=== PATIENT | male | born 1965 | race Caucasian/White ===

== ENCOUNTER 2017-12-26 07:54 | Emergency (ER) | payer MEDICARE, MEDICAID ==
[~2017-12-26] VITALS: Ht 167.6 cm; Wt 96.4 kg
[~2017-12-26 07:54] MED LIST: ALBU18HF2 IH; ASPI-1265 PO; BENA20TA2 PO; CHOL100046 PO; FENO54TA PO; INSU100I12 SQ; MAX25Tt PO; MOME13HF INH; MONT10TA21 PO; NOR5T PO; NOVLG SQ; OMEG1CAP PO; ROSU10TA PO; ZOLP6.2526 PO
[2017-12-26 08:43] LABS: CLARITY,URINE CLEAR (Clear); COLOR,URINE STRAW (Yellow); GLUCOSE, URINE >=1000 mg/dl (Neg); KETONES,URINE NEGATIVE (Neg); LEUKOCYTE ESTERASE ,URINE NEGATIVE (Neg); NITRITES, URINE NEGATIVE (Neg); OCCULT BLOOD,URINE TRACE-LYSED (Neg); PROTEIN,URINE 30 mg/dl (Neg); UROBILINOGEN,URINE 0.2 E.U/dL (0.2-1.0)
[2017-12-26 08:44] LABS: UA COLLECTION TYPE CLN CATCH MIDSTREAM
[2017-12-26 08:48] LABS: BACTERIA,URINE NONE SEEN /HPF (Neg); RBC,URINE NONE SEEN /HPF (0-2); SQUAMOUS EPITHELIAL CELL,UR FEW /LPF (FEW); WBC,URINE NONE SEEN /HPF (0-4)
[2017-12-26 08:52] VITALS: BP 138/80
[2017-12-26 09:38] LABS: BASOPHILS # (AUTO) 0.1 X10'3 (0-0.2); BASOPHILS % (AUTO) 0.8 % (0-1); EOSINOPHILS # (AUTO) 0.2 X10'3 (0-0.9); EOSINOPHILS % (AUTO) 2.6 % (0-6); HEMATOCRIT 46.3 % (42.0-52.0); HEMOGLOBIN 15.9 g/dl (14.0-17.9); LYMPHOCYTES # (AUTO) 1.7 X10'3 (1.1-4.8); LYMPHOCYTES % (AUTO) 24.6 % (21-51); MEAN CORPUSCULAR HEMOGLOBIN 29.7 PG (27.0-31.0); MEAN CORPUSCULAR HGB CONC 34.3 % (33.0-36.5); MEAN CORPUSCULAR VOLUME 86.6 FL (78-98); MEAN PLATELET VOLUME 7.7 FL (7.4-10.4); MONOCYTES # (AUTO) 0.5 X10'3 (0-0.9); MONOCYTES % (AUTO) 6.6 % (2-12); NEUTROPHILS # (AUTO) 4.5 X10'3 (1.8-7.7); NEUTROPHILS % (AUTO) 65.4 % (42-75); PLATELET COUNT 292 X10'3 (140-440); RED BLOOD COUNT 5.35 X10'6 (4.70-6.10); RED CELL DISTRIBUTION WIDTH 12.9 % (11.5-14.5); WHITE BLOOD COUNT 6.9 X10'3 (4.5-11.0)
[2017-12-26] MEDS ORDERED: AMOX-422 PO (09:44)
[2017-12-26 09:48] LABS: ALBUMIN 3.8 G/DL (3.4-5.0); ANION GAP 9 (8-16); BLOOD UREA NITROGEN 21 MG/DL (7-18); BUN/CREATININE RATIO 14.5 (5.4-32.0); CALCIUM 9.4 MG/DL (8.5-10.1); CHLORIDE 97 MMOL/L (99-107); CREATININE 1.45 MG/DL (0.60-1.10); GLUCOSE 247 MG/DL (70-104); POTASSIUM 3.9 MMOL/L (3.5-5.1); SODIUM 135 MMOL/L (135-145); TOTAL CARBON DIOXIDE 29.2 MMOL/L (24-32); eGFR 51 ML/MIN
== END 2017-12-26 10:07 | disposition home or self-care (01) ==
LOC: ER 07:54
DX: R10.32 Left lower quadrant pain (principal); N18.3 Chronic kidney disease, stage 3 (moderate); E11.22 Type 2 diabetes mellitus with diabetic chronic kidney disease; M53.3 Sacrococcygeal disorders, not elsewhere classified; E78.00 Pure hypercholesterolemia, unspecified; I12.9 Hypertensive chronic kidney disease with stage 1 through stage 4 chronic kidney disease, or unspecified chronic kidney disease; K21.9 Gastro-esophageal reflux disease without esophagitis; J45.909 Unspecified asthma, uncomplicated; Z79.899 Other long term (current) drug therapy; Z79.4 Long term (current) use of insulin
CPT/HCPCS: 36415; 80048; 81001; 85025; 99284

== ENCOUNTER 2020-01-18 00:33 | Emergency (ER) | payer MEDICARE, MEDICAID ==
[~2020-01-18] VITALS: Ht 165.1 cm; Wt 92.3 kg
[~2020-01-18 00:33] MED LIST changes: -BENA20TA2 PO; +BENA20TA82 PO; -ROSU10TA PO; +ROSU10TA2 PO
[2020-01-18 00:39] VITALS: BP 138/81
[2020-01-18 01:03] LABS: CLARITY,URINE CLEAR (Clear); COLOR,URINE YELLOW (Yellow); GLUCOSE, URINE NEGATIVE (Neg); KETONES,URINE NEGATIVE (Neg); LEUKOCYTE ESTERASE ,URINE NEGATIVE (Neg); NITRITES, URINE NEGATIVE (Neg); OCCULT BLOOD,URINE SMALL (Neg); PH,URINE 5.5 (4.8-8.0); PROTEIN,URINE 100 mg/dl (Neg); UROBILINOGEN,URINE 0.2 E.U/dL (0.2-1.0)
[2020-01-18 01:05] LABS: UA COLLECTION TYPE CLN CATCH MIDSTREAM
[2020-01-18 01:09] LABS: BACTERIA,URINE NONE SEEN /HPF (Neg); RBC,URINE NONE SEEN /HPF (0-2); SQUAMOUS EPITHELIAL CELL,UR FEW /LPF (FEW); WBC,URINE 0-4 /HPF (0-4)
[2020-01-18 01:10] LABS: MEAN PLATELET VOLUME 7.6 FL (7.4-10.4); WHITE BLOOD COUNT 7.1 X10'3 (4.5-11.0)
[2020-01-18 01:12] LABS: BASOPHILS # (AUTO) 0.1 X10'3 (0-0.2); BASOPHILS % (AUTO) 1.3 % (0-1); EOSINOPHILS # (AUTO) 0.1 X10'3 (0-0.9); EOSINOPHILS % (AUTO) 1.8 % (0-6); HEMATOCRIT 44.6 % (42.0-52.0); HEMOGLOBIN 15.4 g/dl (14.0-17.9); LYMPHOCYTES # (AUTO) 2.8 X10'3 (1.1-4.8); LYMPHOCYTES % (AUTO) 39.4 % (21-51); MEAN CORPUSCULAR HEMOGLOBIN 29.8 PG (27.0-31.0); MEAN CORPUSCULAR HGB CONC 34.6 g/dL (33.0-36.5); MEAN CORPUSCULAR VOLUME 86.2 FL (78-98); MONOCYTES # (AUTO) 0.8 X10'3 (0-0.9); MONOCYTES % (AUTO) 10.7 % (2-12); NEUTROPHILS # (AUTO) 3.3 X10'3 (1.8-7.7); NEUTROPHILS % (AUTO) 46.8 % (42-75); PLATELET COUNT 294 X10'3 (140-440); RED BLOOD COUNT 5.17 X10'6 (4.70-6.10)
[2020-01-18 01:22] LABS: ALANINE AMINOTRANSFERASE 15 U/L (12-78); ALBUMIN 3.5 G/DL (3.4-5.0); ALKALINE PHOSPHATASE 107 IU/L (46-116); ANION GAP 9 (8-16); ASPARTATE AMINO TRANSFERASE 32 U/L (10-37); BILIRUBIN,TOTAL 0.5 MG/DL (0.1-1.0); BLOOD UREA NITROGEN 22 MG/DL (7-18); BUN/CREATININE RATIO 11.2 (5.4-32.0); CALCIUM 9.1 MG/DL (8.5-10.1); CHLORIDE 101 MMOL/L (99-107); CREATININE 1.97 MG/DL (0.60-1.10); GLUCOSE 90 MG/DL (70-104); POTASSIUM 3.4 MMOL/L (3.5-5.1); SODIUM 139 MMOL/L (135-145); TOTAL CARBON DIOXIDE 28.8 MMOL/L (24-32); TOTAL PROTEIN 7.1 G/DL (6.4-8.2); eGFR 35 ML/MIN
[2020-01-18] MEDS ORDERED: ONDA4TAB6 PO (02:00)
== END 2020-01-18 02:10 | disposition home or self-care (01) ==
LOC: ER 00:34
DX: M54.5 Low back pain (principal); R10.31 Right lower quadrant pain; R19.7 Diarrhea, unspecified; R05 Cough; E78.00 Pure hypercholesterolemia, unspecified; I10 Essential (primary) hypertension; J45.909 Unspecified asthma, uncomplicated; K21.9 Gastro-esophageal reflux disease without esophagitis; M19.90 Unspecified osteoarthritis, unspecified site; E11.9 Type 2 diabetes mellitus without complications; G89.29 Other chronic pain; Z90.49 Acquired absence of other specified parts of digestive tract; Z98.890 Other specified postprocedural states; Z91.041 Radiographic dye allergy status; Z79.82 Long term (current) use of aspirin; Z79.4 Long term (current) use of insulin; Z79.899 Other long term (current) drug therapy
CPT/HCPCS: 36415; 80053; 81001; 85025; 99283

== ENCOUNTER 2020-07-15 14:24 | Emergency (ER) | payer MEDICARE, MEDICAID ==
[~2020-07-15] VITALS: Ht 165.1 cm; Wt 92.3 kg
[~2020-07-15 14:24] MED LIST changes: +ONDA4TAB6 PO; -ZOLP6.2526 PO; +ZOLP6.2539 PO
[2020-07-15 15:05] VITALS: BP 180/96
== END 2020-07-15 16:06 | disposition home or self-care (01) ==
LOC: ER 14:24
DX: R05 Cough (principal); R09.81 Nasal congestion; R19.7 Diarrhea, unspecified; E78.00 Pure hypercholesterolemia, unspecified; I10 Essential (primary) hypertension; J45.909 Unspecified asthma, uncomplicated; K21.9 Gastro-esophageal reflux disease without esophagitis; E11.9 Type 2 diabetes mellitus without complications; G89.29 Other chronic pain; K57.90 Diverticulosis of intestine, part unspecified, without perforation or abscess without bleeding; Z87.448 Personal history of other diseases of urinary system; Z88.8 Allergy status to other drugs, medicaments and biological substances; Z79.899 Other long term (current) drug therapy; Z79.82 Long term (current) use of aspirin; Z79.84 Long term (current) use of oral hypoglycemic drugs
CPT/HCPCS: 36415; 87635; 99283

== ENCOUNTER 2021-10-17 17:34 | Emergency (ER) | payer MEDICARE, MEDICAID ==
[~2021-10-17] VITALS: Ht 162.6 cm; Wt 85.0 kg
[~2021-10-17 17:34] MED LIST changes: -OMEG1CAP PO; +OMEG1CAP61 PO
[2021-10-17 18:04] VITALS: BP 123/86
== END 2021-10-17 22:28 | disposition home or self-care (01) ==
LOC: ER 17:34
DX: B34.9 Viral infection, unspecified (principal); Z20.822 Contact with and (suspected) exposure to COVID-19; N39.0 Urinary tract infection, site not specified; R05.9 Cough, unspecified; R09.89 Other specified symptoms and signs involving the circulatory and respiratory systems; R11.2 Nausea with vomiting, unspecified; E78.00 Pure hypercholesterolemia, unspecified; I10 Essential (primary) hypertension; J45.909 Unspecified asthma, uncomplicated; K21.9 Gastro-esophageal reflux disease without esophagitis; E11.9 Type 2 diabetes mellitus without complications; M19.90 Unspecified osteoarthritis, unspecified site; G89.29 Other chronic pain; Z90.89 Acquired absence of other organs; Z98.890 Other specified postprocedural states; Z88.8 Allergy status to other drugs, medicaments and biological substances; Z79.82 Long term (current) use of aspirin; Z79.4 Long term (current) use of insulin; Z79.899 Other long term (current) drug therapy
CPT/HCPCS: 36415; 71045; 87635; 99284; C9803; U0003; U0005

== ENCOUNTER 2021-10-19 19:01 | Emergency (ER) | payer MEDICARE, MEDICAID ==
[~2021-10-19] VITALS: Ht 167.6 cm; Wt 83.0 kg
[2021-10-19 20:21] LABS: CLARITY,URINE CLEAR (Clear); COLOR,URINE YELLOW (Yellow); GLUCOSE, URINE NEGATIVE (Neg); KETONES,URINE TRACE mg/dl (Neg); LEUKOCYTE ESTERASE ,URINE NEGATIVE (Neg); NITRITES, URINE NEGATIVE (Neg); OCCULT BLOOD,URINE NEGATIVE (Neg); PROTEIN,URINE 100 mg/dl (Neg); UROBILINOGEN,URINE 0.2 E.U/dL (0.2-1.0)
[2021-10-19 20:26] LABS: BACTERIA,URINE NONE SEEN /HPF (Neg); RBC,URINE NONE SEEN /HPF (0-2); SQUAMOUS EPITHELIAL CELL,UR FEW /LPF (FEW); UA COLLECTION TYPE CLN CATCH MIDSTREAM; WBC,URINE NONE SEEN /HPF (0-4)
[2021-10-19 20:27] LABS: BASOPHILS # (AUTO) 0.1 X10'3 (0-0.2); BASOPHILS % (AUTO) 0.9 % (0-1); EOSINOPHILS # (AUTO) 0.1 X10'3 (0-0.9); EOSINOPHILS % (AUTO) 0.8 % (0-6); HEMOGLOBIN 13.4 g/dl (14.0-17.9); LYMPHOCYTES # (AUTO) 2.7 X10'3 (1.1-4.8); LYMPHOCYTES % (AUTO) 24.9 % (21-51); MEAN CORPUSCULAR HGB CONC 33.4 g/dL (33.0-36.5); MEAN CORPUSCULAR VOLUME 80.9 FL (78-98); MEAN PLATELET VOLUME 6.9 FL (7.4-10.4); MONOCYTES # (AUTO) 0.7 X10'3 (0-0.9); MONOCYTES % (AUTO) 6.9 % (2-12); NEUTROPHILS # (AUTO) 7.1 X10'3 (1.8-7.7); NEUTROPHILS % (AUTO) 66.5 % (42-75); PLATELET COUNT 399 X10'3 (140-440); RED BLOOD COUNT 4.95 X10'6 (4.70-6.10); RED CELL DISTRIBUTION WIDTH 12.8 % (11.5-14.5); WHITE BLOOD COUNT 10.7 X10'3 (4.5-11.0)
[2021-10-19 20:27] LABS: MUCUS STRANDS FEW /LPF (Neg)
[2021-10-19 20:33] LABS: ALANINE AMINOTRANSFERASE 15 U/L (12-78); ALBUMIN 3.7 G/DL (3.4-5.0); ALBUMIN/GLOBULIN RATIO 1.1 (1.1-1.5); ALKALINE PHOSPHATASE 86 IU/L (46-116); ANION GAP 7 (8-16); ASPARTATE AMINO TRANSFERASE 20 U/L (10-37); BILIRUBIN,TOTAL 0.4 MG/DL (0.1-1.0); BLOOD UREA NITROGEN 34 MG/DL (7-18); CALCIUM 9.2 MG/DL (8.5-10.1); CHLORIDE 97 MMOL/L (99-107); GLUCOSE 159 MG/DL (70-104); LIPASE 259 U/L (73-393); POTASSIUM 3.9 MMOL/L (3.5-5.1); SODIUM 134 MMOL/L (135-145); TOTAL CARBON DIOXIDE 29.9 MMOL/L (24-32); eGFR 42 ML/MIN
[2021-10-19] MEDS ORDERED: HYDROcodone/acetaminophen 10/325mg tab PO ONE (20:45)
[2021-10-19] MEDS ORDERED: ondansetron 4mg rapidly disintigrating tab PO ONE (20:45)
[2021-10-19] MEDS ORDERED: HYDROcodone/acetaminophen 5mg/325mg tablet PO ONE (21:50)
[2021-10-19] MEDS ORDERED: LOPE2CAP PO (21:53)
[2021-10-19] MEDS ORDERED: ONDA8TAB13 PO (21:53)
[2021-10-19] MEDS ORDERED: HYDR-3965 PO (21:53)
[2021-10-19] MEDS ORDERED: loperamide 2mg capsule PO ONE (21:55)
[2021-10-19 22:21] VITALS: BP 145/96
== END 2021-10-19 22:27 | disposition home or self-care (01) ==
LOC: ER 19:01
DX: K52.9 Noninfective gastroenteritis and colitis, unspecified (principal); R10.31 Right lower quadrant pain; E78.00 Pure hypercholesterolemia, unspecified; I10 Essential (primary) hypertension; J45.909 Unspecified asthma, uncomplicated; K21.9 Gastro-esophageal reflux disease without esophagitis; E11.9 Type 2 diabetes mellitus without complications; M19.90 Unspecified osteoarthritis, unspecified site; G89.29 Other chronic pain; Z87.19 Personal history of other diseases of the digestive system; Z90.49 Acquired absence of other specified parts of digestive tract; Z91.041 Radiographic dye allergy status; Z79.82 Long term (current) use of aspirin; Z79.4 Long term (current) use of insulin; Z79.899 Other long term (current) drug therapy
CPT/HCPCS: 36415; 74176; 80053; 81001; 83690; 84145; 84484; 85025; 99284

== ENCOUNTER 2021-11-07 21:43 | Emergency (ER) | payer MEDICARE, MEDICAID ==
[~2021-11-07] VITALS: Ht 165.1 cm; Wt 64.0 kg
[~2021-11-07 21:43] MED LIST changes: +HYDR-3965 PO; +LOPE2CAP PO; +ONDA8TAB13 PO
[2021-11-07 23:00] LABS: BASOPHILS # (AUTO) 0.1 X10'3 (0-0.2); BASOPHILS % (AUTO) 1.2 % (0-1); EOSINOPHILS # (AUTO) 0.1 X10'3 (0-0.9); HEMATOCRIT 41.4 % (42.0-52.0); HEMOGLOBIN 13.6 g/dl (14.0-17.9); LYMPHOCYTES # (AUTO) 2.2 X10'3 (1.1-4.8); LYMPHOCYTES % (AUTO) 29.1 % (21-51); MEAN CORPUSCULAR HEMOGLOBIN 26.6 PG (27.0-31.0); MEAN CORPUSCULAR HGB CONC 32.8 g/dL (33.0-36.5); MEAN CORPUSCULAR VOLUME 81.1 FL (78-98); MONOCYTES # (AUTO) 0.6 X10'3 (0-0.9); MONOCYTES % (AUTO) 8.2 % (2-12); NEUTROPHILS # (AUTO) 4.5 X10'3 (1.8-7.7); NEUTROPHILS % (AUTO) 59.5 % (42-75); PLATELET COUNT 429 X10'3 (140-440); RED BLOOD COUNT 5.11 X10'6 (4.70-6.10); RED CELL DISTRIBUTION WIDTH 13.4 % (11.5-14.5); WHITE BLOOD COUNT 7.5 X10'3 (4.5-11.0)
[2021-11-07 23:05] LABS: ALANINE AMINOTRANSFERASE 13 U/L (12-78); ALBUMIN/GLOBULIN RATIO 1.1 (1.1-1.5); ALKALINE PHOSPHATASE 92 IU/L (46-116); ANION GAP 8 (8-16); ASPARTATE AMINO TRANSFERASE 14 U/L (10-37); BILIRUBIN,TOTAL 0.4 MG/DL (0.1-1.0); BLOOD UREA NITROGEN 21 MG/DL (7-18); BUN/CREATININE RATIO 13.9 (5.4-32.0); CALCIUM 9.2 MG/DL (8.5-10.1); CHLORIDE 98 MMOL/L (99-107); CREATININE 1.51 MG/DL (0.60-1.10); GLUCOSE 151 MG/DL (70-104); LIPASE 211 U/L (73-393); POTASSIUM 4.1 MMOL/L (3.5-5.1); SODIUM 137 MMOL/L (135-145); TOTAL PROTEIN 7.8 G/DL (6.4-8.2); eGFR 48 ML/MIN
[2021-11-08 00:22] LABS: CLARITY,URINE CLEAR (Clear); COLOR,URINE YELLOW (Yellow); GLUCOSE, URINE 250 mg/dl (Neg); KETONES,URINE NEGATIVE (Neg); LEUKOCYTE ESTERASE ,URINE NEGATIVE (Neg); NITRITES, URINE NEGATIVE (Neg); OCCULT BLOOD,URINE NEGATIVE (Neg); PH,URINE 5.5 (4.8-8.0); PROTEIN,URINE 100 mg/dl (Neg); UROBILINOGEN,URINE 0.2 E.U/dL (0.2-1.0)
[2021-11-08 00:32] VITALS: BP 151/85
[2021-11-08 00:34] LABS: UA COLLECTION TYPE CLN CATCH MIDSTREAM
[2021-11-08 00:37] LABS: BACTERIA,URINE NONE SEEN /HPF (Neg); MUCUS STRANDS MODERATE /LPF (Neg); RBC,URINE NONE SEEN /HPF (0-2); SQUAMOUS EPITHELIAL CELL,UR FEW /LPF (FEW); WBC,URINE 0-4 /HPF (0-4)
[2021-11-08 00:38] LABS: AMORPHOUS URATES 1+
[2021-11-08] MEDS ORDERED: POLY119P2 PO (00:58)
[2021-11-08] MEDS ORDERED: GLYC-23 RC (00:58)
[2021-11-08] MEDS ORDERED: ibuprofen tablet 400 MG TABLET PO ONE (01:05)
[2021-11-09] MEDS ORDERED: OMEP40CA21 PO ×2 (15:43)
[2021-11-09] MEDS ORDERED: BISA10SU11 RC (15:46)
[2021-11-09] MEDS ORDERED: POLY119P2 PO (15:46)
[2021-11-09] MEDS ORDERED: BISA10SU60 RC ×2 (15:46)
== END 2021-11-08 01:36 | disposition home or self-care (01) ==
LOC: ER 21:43
DX: R10.84 Generalized abdominal pain (principal); R11.2 Nausea with vomiting, unspecified; R19.7 Diarrhea, unspecified; E78.00 Pure hypercholesterolemia, unspecified; I10 Essential (primary) hypertension; J45.909 Unspecified asthma, uncomplicated; K21.9 Gastro-esophageal reflux disease without esophagitis; E11.9 Type 2 diabetes mellitus without complications; M19.90 Unspecified osteoarthritis, unspecified site; G89.29 Other chronic pain; Z87.19 Personal history of other diseases of the digestive system; Z90.49 Acquired absence of other specified parts of digestive tract; Z79.2 Long term (current) use of antibiotics; Z79.4 Long term (current) use of insulin; Z79.899 Other long term (current) drug therapy; Z79.82 Long term (current) use of aspirin; Z91.041 Radiographic dye allergy status
CPT/HCPCS: 36415; 74176; 80053; 81001; 83690; 85025; 99284

== ENCOUNTER 2021-11-09 10:51 | Emergency (ER) | payer MEDICARE, MEDICAID ==
[~2021-11-09] VITALS: Ht 165.1 cm; Wt 87.0 kg
[~2021-11-09 10:51] MED LIST changes: +GLYC-23 RC; +POLY119P2 PO
[2021-11-09] MEDS ORDERED: ondansetron 4mg rapidly disintigrating tab PO ONE ×2 (12:15→12:40)
[2021-11-09] MEDS ORDERED: fentaNYL/PF 50MCG/1 ML 2ML syringe IM ONE (12:25)
[2021-11-09] MEDS ORDERED: magnesium citrate 296ml oral solution PO ONE (12:40)
[2021-11-09 13:02] LABS: BASOPHILS # (AUTO) 0.1 X10'3 (0-0.2); BASOPHILS % (AUTO) 0.8 % (0-1); EOSINOPHILS % (AUTO) 0.3 % (0-6); HEMATOCRIT 41.3 % (42.0-52.0); HEMOGLOBIN 13.6 g/dl (14.0-17.9); LYMPHOCYTES # (AUTO) 1.5 X10'3 (1.1-4.8); LYMPHOCYTES % (AUTO) 15.6 % (21-51); MEAN CORPUSCULAR HEMOGLOBIN 26.6 PG (27.0-31.0); MEAN CORPUSCULAR HGB CONC 32.8 g/dL (33.0-36.5); MONOCYTES # (AUTO) 0.6 X10'3 (0-0.9); MONOCYTES % (AUTO) 6.6 % (2-12); NEUTROPHILS # (AUTO) 7.3 X10'3 (1.8-7.7); NEUTROPHILS % (AUTO) 76.7 % (42-75); PLATELET COUNT 414 X10'3 (140-440); RED BLOOD COUNT 5.11 X10'6 (4.70-6.10); RED CELL DISTRIBUTION WIDTH 13.3 % (11.5-14.5); WHITE BLOOD COUNT 9.5 X10'3 (4.5-11.0)
[2021-11-09 13:25] LABS: ALANINE AMINOTRANSFERASE 11 U/L (12-78); ALBUMIN 3.8 G/DL (3.4-5.0); ALBUMIN/GLOBULIN RATIO 1.1 (1.1-1.5); ALKALINE PHOSPHATASE 78 IU/L (46-116); ASPARTATE AMINO TRANSFERASE 15 U/L (10-37); BILIRUBIN,TOTAL 0.6 MG/DL (0.1-1.0); BLOOD UREA NITROGEN 24 MG/DL (7-18); BUN/CREATININE RATIO 15.2 (5.4-32.0); CALCIUM 9.7 MG/DL (8.5-10.1); CREATININE 1.58 MG/DL (0.60-1.10); GLUCOSE 248 MG/DL (70-104); TOTAL CARBON DIOXIDE 26.6 MMOL/L (24-32); TOTAL PROTEIN 7.3 G/DL (6.4-8.2); eGFR 45 ML/MIN
--- NOTE | 2021-11-09 13:56 | NUR ---
550 ml soap patricia enema completed. pt reports abdominal paina and n/v and dizziness
[2021-11-09] MEDS ORDERED: proCHLORperazine 10 MG/2 ml inj IM ONE (14:35)
[2021-11-09] MEDS ORDERED: diphenhydrAMINE 25mg capsule PO ONE (14:35)
[2021-11-09 15:19] VITALS: BP 147/89
[2021-11-09] MEDS ORDERED: dicyclomine 10mg/ml 2ml ampule IM ONE (15:20)
[2021-11-09] MEDS ORDERED: LORazepam 1 MG tablet PO ONE (15:30)
[2021-11-09] MEDS ORDERED: OMEP40CA21 PO ×2 (15:43)
[2021-11-09] MEDS ORDERED: BISA10SU60 RC ×2 (15:46)
[2021-11-09] MEDS ORDERED: POLY119P2 PO (15:46)
[2021-11-09] MEDS ORDERED: BISA10SU11 RC (15:46)
[2021-11-09 16:24] LABS: CLARITY,URINE CLEAR (Clear); COLOR,URINE YELLOW (Yellow); GLUCOSE, URINE 250 mg/dl (Neg); KETONES,URINE NEGATIVE (Neg); LEUKOCYTE ESTERASE ,URINE NEGATIVE (Neg); NITRITES, URINE NEGATIVE (Neg); OCCULT BLOOD,URINE NEGATIVE (Neg); PH,URINE 6.5 (4.8-8.0); PROTEIN,URINE 30 mg/dl (Neg); UROBILINOGEN,URINE 0.2 E.U/dL (0.2-1.0)
[2021-11-09 16:29] LABS: UA COLLECTION TYPE STRAIGHT CATH
[2021-11-09 16:30] LABS: MUCUS STRANDS FEW /LPF (Neg); SQUAMOUS EPITHELIAL CELL,UR FEW /LPF (FEW)
[2021-11-09 16:31] LABS: BACTERIA,URINE FEW /HPF (Neg); RBC,URINE 0-2 /HPF (0-2); WBC,URINE 0-4 /HPF (0-4)
[2021-11-10 09:09] LABS: POTASSIUM 4.3 MMOL/L (3.3-5.1)
[2021-11-10 15:31] LABS: ANION GAP 9 (8-16); CHLORIDE 96 MMOL/L (99-107); POTASSIUM 4.3 MMOL/L (3.5-5.1); SODIUM 132 MMOL/L (135-145)
== END 2021-11-09 16:27 | disposition home or self-care (01) ==
LOC: ER 10:51
DX: R10.84 Generalized abdominal pain (principal); K59.00 Constipation, unspecified; E78.00 Pure hypercholesterolemia, unspecified; I10 Essential (primary) hypertension; J45.909 Unspecified asthma, uncomplicated; K21.9 Gastro-esophageal reflux disease without esophagitis; E11.9 Type 2 diabetes mellitus without complications; M19.90 Unspecified osteoarthritis, unspecified site; G89.29 Other chronic pain; Z90.49 Acquired absence of other specified parts of digestive tract; Z79.82 Long term (current) use of aspirin; Z79.899 Other long term (current) drug therapy; Z79.4 Long term (current) use of insulin; Z91.041 Radiographic dye allergy status
CPT/HCPCS: 36415; 74018; 80051; 80053; 81001; 84145; 85025; 96372; 99285; J0500; J0780; J3010; Q0163; 99284